=== PATIENT | female | born 1935 | race Caucasian/White ===

== ENCOUNTER → 2016-10-20 | Outpatient (CLI) | payer OTHER | LOC: RAD 03:09 | DX: Z12.31 Encounter for screening mammogram for malignant neoplasm of breast (principal) ==

== ENCOUNTER 2016-10-26 06:19 | Emergency (ER) | payer OTHER ==
[~2016-10-26] VITALS: Ht 157.5 cm; Wt 77.1 kg
[2016-10-26] MEDS ORDERED: METHOTREXATE 22.5 MG PO (06:31)
[2016-10-26] MEDS ORDERED: MOBIC7.5 MG PO (06:32)
[2016-10-26 07:30] VITALS: BP 112/69
[2016-10-26] MEDS ORDERED: NORCO 5-325 TA1 EACH PO (08:47)
[2016-10-26] MEDS ORDERED: ULTRA-LIGHT RO1 EACH MC (08:47)
[2016-10-26] MEDS ORDERED: MEDROLDOSEPACK PO (08:47)
== END 2016-10-26 09:01 | disposition home or self-care (01) ==
LOC: ER 06:19
DX: M54.31 Sciatica, right side (principal)

== ENCOUNTER → 2016-11-29 | Outpatient (CLI) | payer OTHER ==
[~2016-11-29] MED LIST: MEDROLDOSEPACK PO; METHOTREXATE 22.5 MG PO; MOBIC7.5 MG PO; NORCO 5-325 TA1 EACH PO; ULTRA-LIGHT RO1 EACH MC
== END ==
LOC: MRI 09:13
DX: M51.36 Other intervertebral disc degeneration, lumbar region (principal); M54.16 Radiculopathy, lumbar region

== ENCOUNTER → 2016-12-04 | Outpatient (CLI) | payer OTHER ==
[~2016-12-04] MED LIST changes: +BENADRYL25 MG PO; +FISH OIL 1,001000 M2 PO; +FOLIC ACID1 MG PO; +PRILOSEC OTC20 MG PO; +PROBIOTIC1 EAC1 PO; +TUMS PO
== END ==
LOC: ULTRA 12:24
DX: R19.00 Intra-abdominal and pelvic swelling, mass and lump, unspecified site (principal)

== ENCOUNTER → 2016-12-06 | Outpatient (CLI) | payer OTHER ==
[~2016-12-06] VITALS: Ht 157.5 cm; Wt 75.4 kg
[2016-12-06 09:30] VITALS: BP 128/74
== END | disposition home or self-care (01) ==
LOC: PAIN 07:05
DX: M54.30 Sciatica, unspecified side (principal); M54.16 Radiculopathy, lumbar region; M19.90 Unspecified osteoarthritis, unspecified site; D64.9 Anemia, unspecified; Z90.710 Acquired absence of both cervix and uterus; Z98.890 Other specified postprocedural states

== ENCOUNTER → 2017-10-22 | Outpatient (CLI) | payer OTHER | LOC: RAD 01:27 | DX: Z12.31 Encounter for screening mammogram for malignant neoplasm of breast (principal) ==

== ENCOUNTER → 2017-12-14 | Outpatient (CLI) | payer OTHER ==
--- NOTE | ~2017-12-14 | 2DMMODE ---
[facility] [place] [place] [address] 2 D/M-MODE ECHOCARDIOGRAM Name: MALLORIE LAND Room #: REG [facility]#: [id number] Admission: 12/14/17 Attend Phys: Cole Lazar Discharge: Date of : 31 Date of Service: 12/14/17 1141 Report #: [id number] THIS REPORT FOR: //name// APPROVED REPORT Study performed: 12/14/2017 11:02:37 EXAM: Comprehensive 2D, Doppler, and color-flow Echocardiogram Patient Location: Out-Patient Status: routine BSA: 1.78 HR: 71 bpm BP: 126/81 mmHg Rhythm: NSR Other Information Study Quality: Good Indications Dyspnea 2D Dimensions RVDd: 33.55 mm LVEF(%): 66.93 (>50%) IVSd: 9.50 (7-11mm) LVOT Diam: 18.99 (18-24mm) LVDd: 36.74 mm PWd: 9.50 (7-11mm) Ascending Ao: 32.62 (22-36mm) LVDs: 23.39 (25-40mm) Aortic Root: 31.63 mm Ramires's LVEF: 66.93 % Volumes Left Atrial Volume (Systole) Single Plane 4CH: 48.39 mL Single Plane 2CH: 53.62 mL LA ESV Index: 30.00 mL/m2 Aortic Valve AoV Peak Hayes.: 1.23 m/s AO Peak Gr.: 6.09 mmHg LVOT Max P.72 mmHg LVOT Max V: 0.96 m/s MICHELLE Vmax: 2.21 cm2 Mitral Valve E/A Ratio: 0.7 MV Decel. Time: 229.82 ms [facility] [address] [place] [address] 2 D/M-MODE ECHOCARDIOGRAM Name: NATTY ZELAYAMALLORIE Room #: [facility]#: [id number] Admission: 12/14/17 Attend Phys: Cole Lazar Discharge: Date of : 31 Date of Service: 12/14/17 1141 Report #: [id number] MV E Max Hayes.: 0.72 m/s MV A Hayes.: 1.03 m/s MV PHT: 66.65 ms IVRT: 101.50 ms Pulmonary Valve PV Peak Hayes.: 0.68 m/s PV Peak Gr.: 1.85 mmHg Pulmonary Vein P Vein S: 0.52 m/s P Vein D: 0.27 m/s P Vein S/D Ratio: 1.93 Tricuspid Valve TR Peak Hayes.: 2.64 m/s RAP Estimate: 5.00 mmHg TR Peak Gr.: 27.90 mmHg PA Pressure: 33.00 mmHg Left Ventricle The left ventricle is normal size. There is normal LV segmental wall motion. There is normal left ventricular wall thickness. The left ventricular systolic function is normal. LVEF is 60-65%. Mild diastolic dysfunction is present (impaired relaxation pattern). Right Ventricle The right ventricle is normal size. The right ventricular systolic function is normal. Atria The left atrium size is normal. The right atrium size is normal. Aortic Valve The aortic valve is normal in structure. No aortic regurgitation is present. There is no aortic valvular stenosis. Mitral Valve The mitral valve is normal in structure. Trace to mild mitral regurgitation. No evidence of mitral valve stenosis. Tricuspid Valve The tricuspid valve is normal in structure. Mild tricuspid regurgitation. Estimated PAP is 30-35mmHg. Pulmonic Valve [facility] [address] [place] [address] 2 D/M-MODE ECHOCARDIOGRAM Name: MALLORIE LAND [id number] Admission: 12/14/17 Attend Phys: Cole Lazar Discharge: Date of : 31 Date of Service: 12/14/17 1141 Report #: [id number] Pulmonic valve is not well visualized. Great Vessels The aortic root is normal in size. The ascending aorta is normal in size. IVC is normal in size and collapses >50% with inspiration. Pericardium There is no pericardial effusion. <Conclusion> The left ventricle is normal size. The left ventricular systolic function is normal. LVEF is 60-65%. The aortic valve is normal in structure. The mitral valve is normal in structure. Trace to mild mitral regurgitation. The tricuspid valve is normal in structure. Mild tricuspid regurgitation. Estimated PAP is 30-35mmHg. Pulmonic valve is not well visualized. There is no pericardial effusion. <ELECTRONICALLY SIGNED> By: Cole Mayo MD 12/14/17 1141 1141 1141 Cole Mayo MD /INF
== END ==
LOC: CV 10:37
DX: I07.1 Rheumatic tricuspid insufficiency (principal)

== ENCOUNTER → 2018-01-04 | Outpatient (CLI) | payer OTHER ==
[~2018-01-04] VITALS: Ht 157.5 cm; Wt 77.1 kg
[~2018-01-04] MED LIST changes: +ACETAMINOPHEN-1 EAC1 PO; +CALCIUM 600 +1 EAC1 PO; +FISH OIL 1,2001 EAC4 PO; +FLEXERIL PO; +IRON325 PO; +RETIN-A20 G1 TOP
--- NOTE | ~2018-01-04 | CATHLAB ---
[facility] [address] [place] [address] INVASIVE PROCEDURE REPORT Name: MALLORIE CUMMINS Room #: REG [facility]#: [id number] Admission: 01/04/18 Attend Phys: Cole Lazar Discharge: Date of : 31 Date of Service: 01/09/18 180 Report #: [id number] THIS REPORT FOR: //name// APPROVED REPORT Study performed: 01/04/2018 11:38:57 Patient Details Patient Status: Out-Patient Room #: The patient is a 82 year-old female Event Personnel Cole Mayo Wader Boot Top Assembler, Shiraz Phoenix RN RN, Remy Lang RN RN, Smiley Cruz RTR, Stevenson Cohen Christine RTR Monitor, Yanna Fried Casino Floor Runner Procedures Performed Art Access - R femoral artery* Hemostasis with Manual pressure Left Heart Cath w/or w/o Coronaries [id number] [facility] [id number] Initial Mod Sed Same Phys/QHP 5y [id number] supervision of conscious sedation Indication Positive stress test, Chest pain Procedure Narrative The Right Groin^ was infiltrated with 1% Lidocaine subcutaneous anesthesia. A PINNACLE 4FR Sheath #[id number] sheath was inserted into the RFA^. Coronary angiography was performed using coronary diagnostic catheters. The right coronary system was accessed and visualized with a JR4 catheter. The left coronary system was accessed and visualized with a JL4 catheter. The left ventricle was accessed and visualized with a Angled pigtail catheter. Left ventricular/Aortic Valve gradient assessed via catheter pullback. Hemostasis was obtained with manual pressure following sheath removal without any complications. The patient tolerated the procedure well and there were no complications associated with the procedure. There was no hematoma. Intraoperative Conscious Sedation Sedation start time: 11:46 Case end Time: 12:12 Versed 2 mg Fluoro Time: 3.12 minutes [facility] [place] [address] INVASIVE PROCEDURE REPORT Name: MALLORIE CUMMINS Room #: REG [facility]#: [id number] Admission: 01/04/18 Attend Phys: Cole Lazar Discharge: Date of : 31 Date of Service: 01/09/18 1803 Report #: [id number] Dose: DAP 2998.90 cGycm2 375 mGy Contrast Type and Amount: Omnipaque 40 ml Coronary Angiography The patient's coronary anatomy is left dominant. Diagnostic Cath Left Main Normal origin and caliber bifurcates left anterior descending left circumflex free of high-grade disease LAD Moderate caliber vessel which courses in the anterior interventricular sulcus giving rise to small first diagonal branch and septal chief relay tester. Then continues on giving us with slightly larger second diagonal branch which is tortuous in its course. The LAD continues on tapering to the apex and terminating in the inferior poles. Apical wall Diagonal 1 Very small caliber vessel without high-grade disease Diagonal 2 Small-caliber vessel without significant stenosis but tortuous course Circumflex Moderate caliber vessel gives rise to a small first inch in courses in the AV groove posterior ligament x-ray moderate caliber for terminating and posterior wall width to posterior wall branches. His history of significant high-grade lesion or cyanosis OM1 Diminutive size vessel disease OM2 Color vessel without significant obstructive lesions noted L PDA All caliber vessel which appears with a second posterior descending artery and is free of high-grade disease Right Coronary All caliber nondominant vessel that significant stenotic lesions present Left Ventriculography Left Ventriculography was not performed. Hemodynamics The aortic pressure is 143/78 mmHg with a mean of 54 mmHg. The left ventricular pressure is 132/16 mmHg with a mean of mmHg. The left ventricular end diastolic pressure is 35 mmHg. Conclusion 1. Normal coronary arteries 2. Normal hemodynamics [facility] [email or web address] [address] INVASIVE PROCEDURE REPORT Name: MALLORIE CUMMINS Room #: REG [facility]#: [id number] Admission: 01/04/18 Attend Phys: Cole Lazar Discharge: Date of : 31 Date of Service: 01/09/181802 Report #: [id number] Recommendations Cardiac Risk Reduction Program <ELECTRONICALLY SIGNED> By: Cole Mayo MD 01/09/181802 02 02 Cole Mayo MD /INF
[2018-01-04 10:00] VITALS: BP 129/79
[2018-01-04 10:03] LABS: HEMOGLOBIN 12.9 gm/dL (12.0-15.0); MCH 31.4 pg (26.0-34.0); MCV 92.2 fL (80.0-100.0); RBC 4.12 mil/uL (4.20-5.00); RDW 14.8 % (10.5-14.5); WBC 6.1 thou/uL (4.0-11.0)
[2018-01-04 10:11] LABS: CALCIUM 8.8 mg/dL (8.5-10.1); CREATININE 1.1 mg/dL (0.6-1.0); POTASSIUM 3.7 mmol/L (3.5-5.1)
== END | disposition home or self-care (01) ==
LOC: CATH 09:11
PROVIDERS: Internal Medicine
DX: R07.9 Chest pain, unspecified (principal); M54.30 Sciatica, unspecified side; Z90.710 Acquired absence of both cervix and uterus; Z90.89 Acquired absence of other organs; Z98.49 Cataract extraction status, unspecified eye; Z98.890 Other specified postprocedural states; Z79.899 Other long term (current) drug therapy

== ENCOUNTER → 2018-10-25 | Outpatient (CLI) | payer OTHER | LOC: RAD 07:37 | DX: Z12.31 Encounter for screening mammogram for malignant neoplasm of breast (principal) ==

== ENCOUNTER → 2019-01-27 | Outpatient (CLI) | payer OTHER | LOC: RAD 13:29 | DX: R06.02 Shortness of breath (principal); K44.9 Diaphragmatic hernia without obstruction or gangrene ==

== ENCOUNTER → 2019-02-06 | Outpatient (CLI) | payer OTHER | LOC: CAT 09:54 | DX: J98.11 Atelectasis (principal); K44.9 Diaphragmatic hernia without obstruction or gangrene ==

== ENCOUNTER → 2019-04-11 | Outpatient (CLI) | payer OTHER ==
--- NOTE | 2019-04-11 14:44 | 2DMMODE ---
[facility] [place] [address] 2 D/M-MODE ECHOCARDIOGRAM Name: MALLORIE CUMMINS Room #: REG [facility]#: [id number] Admission: 04/11/19 Attend Phys: Conrado Musa Discharge: Date of : 31 Report #: [id number] THIS REPORT FOR: //name// APPROVED REPORT Study performed: 04/11/2019 13:59:38 EXAM: Comprehensive 2D, Doppler, and color-flow Echocardiogram Patient Location: Out-Patient Status: routine BSA: 1.79 HR: 80 bpm BP: 120/80 mmHg Rhythm: NSR Other Information Study Quality: Good Indications Dyspnea 2D Dimensions RVDd: 33.40 mm IVSd: 8.48 (7-11mm) LVOT Diam: 19.58 (18-24mm) LVDd: 36.59 mm PWd: 7.64 (7-11mm) LVDs: 23.64 (25-40mm) Aortic Root: 32.02 mm Volumes Left Atrial Volume (Systole) Single Plane 4CH: 47.86 mL Single Plane 2CH: 45.29 mL LA ESV Index: 28.00 mL/m2 Aortic Valve AoV Peak Hayes.: 1.46 m/s AO Peak Gr.: 8.55 mmHg LVOT Max P.28 mmHg LVOT Max V: 1.03 m/s MICHELLE Vmax: 2.13 cm2 Mitral Valve E/A Ratio: 0.8 MV Decel. Time: 237.45 ms MV E Max Hayes.: 0.97 m/s [facility] [address] [place] [address] 2 D/M-MODE ECHOCARDIOGRAM Name: MALLORIE CUMMINS Room #: REG [facility]#: [id number] Admission: 04/11/19 Attend Phys: Conrado Musa Discharge: Date of : 31 Report #: [id number] MV A Hayes.: 1.28 m/s MV PHT: 68.86 ms IVRT: 89.97 ms Pulmonary Valve PV Peak Hayes.: 0.75 m/s PV Peak Gr.: 2.23 mmHg Pulmonary Vein P Vein S: 0.61 m/s P Vein A: 0.29 m/s P Vein D: 0.48 m/s P Vein A Dur.: 100.3 msec P Vein S/D Ratio: 1.27 Tricuspid Valve TR Peak Hayes.: 2.79 m/s RAP Estimate: 5.00 mmHg TR Peak Gr.: 31.08 mmHg PA Pressure: 36.00 mmHg Left Ventricle The left ventricle is normal size. There is normal LV segmental wall motion. There is normal left ventricular wall thickness. Left ventricular systolic function is normal. LVEF is 60-65%. Mild diastolic dysfunction is present (impaired relaxation pattern). Right Ventricle The right ventricle is normal size. The right ventricular systolic function is normal. Atria The left atrium size is normal. The right atrium size is normal. Aortic Valve The aortic valve is normal in structure. Trace aortic regurgitation. There is no aortic valvular stenosis. Mitral Valve The mitral valve is normal in structure. Mild mitral regurgitation. No evidence of mitral valve stenosis. Tricuspid Valve The tricuspid valve is normal in structure. Mild tricuspid regurgitation. Estimated PAP is 36mmHg. Pulmonic Valve The pulmonary valve is normal in structure. Trace pulmonic [facility] [place] [address] 2 D/M-MODE ECHOCARDIOGRAM Name: MALLORIE CUMMINS Room #: REG [facility]#: [id number] Admission: 04/11/19 Attend Phys: Conrado Musa Discharge: Date of : 31 Report #: [id number] regurgitation. Great Vessels The aortic root is normal in size. IVC is normal in size and collapses >50% with inspiration. Pericardium There is no pericardial effusion. <Conclusion> The left ventricle is normal size. There is normal left ventricular wall thickness. Left ventricular systolic function is normal. Mild diastolic dysfunction is present (impaired relaxation pattern). The right ventricle is normal size. The left atrium size is normal. Trace aortic regurgitation. Mild mitral regurgitation. Mild tricuspid regurgitation. Estimated PAP is 36mmHg. <ELECTRONICALLY SIGNED> By: Mehran Villa MD 04/11/19 1443 1443 144 Mehran Villa MD /INF
== END ==
LOC: CV 10:42
DX: I08.1 Rheumatic disorders of both mitral and tricuspid valves (principal)

== ENCOUNTER → 2019-10-06 | Outpatient (CLI) | payer OTHER ==
[2019-10-06 12:52] LABS: BE(vivo) -0.1 mmol/L (-2 to +3); HCO3 24.1 mmol/L (22.0-26.0); PCO2 37.5 mmHg (35.0-45.0); PO2 80.7 mmHg (80.0-100.0); pH 7.425 (7.360-7.450); sO2 96.2 % (92.0-98.0)
== END ==
LOC: PUL 12:32
PROVIDERS: Pediatrics
DX: R06.00 Dyspnea, unspecified (principal)

== ENCOUNTER → 2019-10-28 | Outpatient (CLI) | payer OTHER | LOC: BC 11:59 | PROVIDERS: ATTEND Family Medicine | DX: Z12.31 Encounter for screening mammogram for malignant neoplasm of breast (principal) ==

== ENCOUNTER → 2020-01-02 | Outpatient (CLI) | payer OTHER | LOC: SJCVC 14:34 | PROVIDERS: ATTEND Internal Medicine | DX: R00.2 Palpitations (principal); R06.09 Other forms of dyspnea; M06.9 Rheumatoid arthritis, unspecified; Z79.899 Other long term (current) drug therapy ==